=== PATIENT | female | born 1985 | race Caucasian/White ===

== ENCOUNTER 2020-06-03 11:21 | Emergency (ER) | payer BC, OTHER ==
[~2020-06-03] VITALS: Ht 175.3 cm; Wt 67.7 kg
[2020-06-03] MEDS ORDERED: FURO20TA2 PO (11:56)
[2020-06-03] MEDS ORDERED: OCUV1CAP4 PO (11:56)
[2020-06-03] MEDS ORDERED: LEVO50TA5 PO (11:56)
[2020-06-03] MEDS ORDERED: EQL50TAB2 PO (11:56)
[2020-06-03] MEDS ORDERED: GABA-845 PO (11:56)
[2020-06-03] MEDS ORDERED: XANA0.5T PO (11:56)
[2020-06-03] MEDS ORDERED: MELO15TA28 PO (11:56)
[2020-06-03] MEDS ORDERED: VITAD1000T PO (11:56)
[2020-06-03] MEDS ORDERED: AMBI5TAB PO (11:56)
[2020-06-03] MEDS ORDERED: PREDOPD OP (11:56)
[2020-06-03] MEDS ORDERED: MIRA1POW3 PO (11:56)
[2020-06-03] MEDS ORDERED: HYDR1TAB33 PO (11:56)
[2020-06-03] MEDS ORDERED: NS 1,000 ML IV ONE (13:15)
[2020-06-03] MEDS ORDERED: TETRACAINE 0.5% OPHTH SOLN 4ML OD ONE (13:15)
[2020-06-03] MEDS ORDERED: FLUORESCEIN OPHTH 1 MG STRIP OD ONE (13:15)
[2020-06-03 13:38] LABS: BASO # 0.1 10^3/uL (0.0-0.2); BASO % 0.9 % (0.0-1.0); EOS # 0.1 10^3/uL (0.0-0.5); EOS % 1.7 % (0.0-3.0); HEMATOCRIT 42.6 % (36.0-47.0); HEMOGLOBIN 14.7 g/dl (12.0-15.5); LYMPH # 1.3 10^3/uL (1.5-5.0); LYMPH % 19.4 % (24.0-44.0); MEAN CORPUSCULAR HGB CONC 34.5 g/dl (32.0-36.5); MEAN CORPUSCULAR VOLUME 95.7 fl (80.0-96.0); MONO # 0.4 10^3/uL (0.0-0.8); MONO % 6.1 % (0.0-5.0); NEUTROPHILS # 4.7 10^3/uL (1.5-8.5); NEUTROPHILS % 71.7 % (36.0-66.0); PLATELET COUNT, AUTOMATED 186 10^3/uL (150-450); RED BLOOD COUNT 4.45 10^6/uL (4.00-5.40); WHITE BLOOD COUNT 6.6 10^3/uL (4.0-10.0)
[2020-06-03 13:49] LABS: INR 1.1; PROTHROMBIN TIME 13.9 SECONDS (11.8-14.0)
[2020-06-03 13:50] LABS: PARTIAL THROMBOPLASTIN TIME 28.7 SECONDS (25.0-38.4)
[2020-06-03 14:08] LABS: ALT/SGPT 11 U/L (12-78); BILIRUBIN,DIRECT 0.2 MG/DL (0.0-0.2); BLOOD UREA NITROGEN 13 MG/DL (7-18); CALCIUM LEVEL 8.9 MG/DL (8.5-10.1); CARBON DIOXIDE LEVEL 29 MEQ/L (21-32); CHLORIDE LEVEL 108 MEQ/L (98-107); CREATININE FOR GFR 0.78 MG/DL (0.55-1.30); FREE T4 1.15 NG/DL (0.76-1.46); GLOMERULAR FILTRATION RATE > 60.0 (>60); GLUCOSE, FASTING 94 MG/DL (70-100); LIPASE 101 U/L (73-393); POTASSIUM SERUM 4.1 MEQ/L (3.5-5.1); SODIUM LEVEL 141 MEQ/L (136-145); TOTAL PROTEIN 7.1 GM/DL (6.4-8.2)
[2020-06-03 15:29] LABS: C REACTIVE PROTEIN QUANTITATIV < 0.30 MG/DL (0.00-0.30)
[2020-06-03 15:35] LABS: ERYTHROCYTE SEDIMENTATION RATE 2 mm/hr (0-20)
[2020-06-03] MEDS ORDERED: ISOVUE-370 76% 100ML VIAL As Ordered ONE (16:18)
[2020-06-03 16:33] VITALS: BP 125/62
--- NOTE | 2020-06-03 17:03 | REPVR ---
PROCEDURE INFORMATION: Exam: CT Angiography Neck With Contrast Exam date and time: 06/03/2020 4:15 PM Age: 34 years old Clinical indication: Visual disturbance; Additional info: Intermittent vision loss TECHNIQUE: Imaging protocol: Computed tomography angiography of the neck with intravenous contrast. 3D rendering: MIP and/or 3D reconstructed images were created by the technologist. Radiation optimization: All CT scans at this facility use at least one of these dose optimization techniques: automated exposure control; mA and/or kV adjustment per patient size (includes targeted exams where dose is matched to clinical indication); or iterative reconstruction. Contrast material: ISOVUE 370; Contrast volume: 100 ml; Contrast route: INTRAVENOUS (IV); COMPARISON: No relevant prior studies available. FINDINGS: Right common carotid artery: No stenosis. No dissection or occlusion. Right internal carotid artery: No stenosis of the extracranial segment. No dissection or occlusion. Right external carotid artery: No occlusion or stenosis of the origin. Right vertebral artery: No stenosis. No dissection or occlusion. Left common carotid artery: No stenosis. No dissection or occlusion. Left internal carotid artery: No stenosis of the extracranial segment. No dissection or occlusion. Left external carotid artery: No occlusion or stenosis of the origin. Left vertebral artery: No stenosis. No dissection or occlusion. Bones/joints: No acute fracture. Soft tissues: Normal. No significant soft tissue swelling. IMPRESSION: No acute abnormality. REFERENCES: NASCET CRITERIA. The degree of internal carotid artery stenosis is based on NASCET criteria. Normal is no stenosis. Mild is less than 50% stenosis. Moderate is 50-69% stenosis. Severe is 70% to 99% stenosis. Total occlusion is no detectable patent lumen. Electronically signed by: Mitchel Park On 06/03/2020 17:03:32 PM
--- NOTE | 2020-06-03 17:08 | REPVR ---
PROCEDURE INFORMATION: Exam: CT Angiography Head With Contrast Exam date and time: 06/03/2020 4:15 PM Age: 34 years old Clinical indication: Visual disturbance; Additional info: Intermittent vision loss TECHNIQUE: Imaging protocol: Computed tomography angiography of the head with intravenous contrast. 3D rendering: MIP and/or 3D reconstructed images were created by the technologist. Radiation optimization: All CT scans at this facility use at least one of these dose optimization techniques: automated exposure control; mA and/or kV adjustment per patient size (includes targeted exams where dose is matched to clinical indication); or iterative reconstruction. Contrast material: ISOVUE 370; Contrast volume: 100 ml; Contrast route: INTRAVENOUS (IV); COMPARISON: CT Head without contrast 06/03/2020 1:41 PM FINDINGS: Anterior cerebral arteries: No occlusion or significant stenosis. No aneurysm. Right internal carotid artery: Intracranial segment is patent with no significant stenosis or occlusion. No aneurysm. Right middle cerebral artery: No occlusion or significant stenosis. No aneurysm. Right posterior cerebral artery: No occlusion or significant stenosis. No aneurysm. Right vertebral artery: No occlusion or significant stenosis. No aneurysm. Left internal carotid artery: Intracranial segment is patent with no significant stenosis or occlusion. No aneurysm. Left middle cerebral artery: No occlusion or significant stenosis. No aneurysm. Left posterior cerebral artery: No occlusion or significant stenosis. No aneurysm. Left vertebral artery: No occlusion or significant stenosis. No aneurysm. Basilar artery: No occlusion or significant stenosis. No aneurysm. IMPRESSION: No acute abnormality. Electronically signed by: Mitchel Park On 06/03/2020 17:07:35 PM
--- NOTE | 2020-06-04 07:31 | REP ---
CT BRAIN WITHOUT CONTRAST: REASON: Vision changes. No priors. TECHNIQUE: 4.5 mm contiguous transaxial sections were obtained from the skull base to the cerebral convexities with thin cuts through the posterior fossa without the administration of intravenous contrast. FINDINGS: The ventricles and sulci are consistent with the patient's age. There are no extra-axial fluid collections. There is no mass effect. The deep cerebral white matter is consistent with the patient's age. The orbital and petrous structures, cerebellopontine angles, and posterior fossa are unremarkable. The sella turcica, cavernous, and paracavernous structures are essentially unremarkable. The visualized portions of the paranasal sinuses and mastoid air cells are clear. Images of the skull base show no gross abnormality. IMPRESSION: Essentially unremarkable CT examination of the brain. Electronically Signed by Toño Florian DO 06/04/2020 08:00 A
--- NOTE | 2020-06-04 08:33 | ECGEPIP ---
[facility] - ED Test Date: 2020-06-03 Pat Name: BRENDA STEWARD Department: Room: - Gender: Female Care Rep: HUGO : 1985 Requested By: REYES Zhao PA-C Order Number: [id number] Reading MD: Ovidio Shen Measurements Intervals [place] Rate: 54 P: 22 [place]: 155 QRS: 76 QRSD: 81 T: 52 QT: 426 QTc: 404 Interpretive Statements SINUS BRADYCARDIA NO PRIORS FOR COMPARISON Electronically Signed on 06-04-2020 8:33:35 EDT by Ovidio Shen
== END 2020-06-03 17:31 | disposition home or self-care (01) ==
LOC: M ED 11:21
DX: H53.121 Transient visual loss, right eye (principal); R00.1 Bradycardia, unspecified; Z86.19 Personal history of other infectious and parasitic diseases; H35.30 Unspecified macular degeneration; K58.9 Irritable bowel syndrome, unspecified; K55.019 Acute (reversible) ischemia of small intestine, extent unspecified; E03.9 Hypothyroidism, unspecified; F41.9 Anxiety disorder, unspecified; F32.9 Major depressive disorder, single episode, unspecified; G43.909 Migraine, unspecified, not intractable, without status migrainosus; I73.00 Raynaud's syndrome without gangrene; Z79.899 Other long term (current) drug therapy; Z88.0 Allergy status to penicillin; Z88.1 Allergy status to other antibiotic agents; Z88.5 Allergy status to narcotic agent; Z88.8 Allergy status to other drugs, medicaments and biological substances
CPT/HCPCS: 36415; 70450; 70496; 70498; 80047; 80048; 80076; 81001; 83690; 84439; 84443; 84702; 85025; 85610; 85652; 85730; 86140; 93005; 96360; 96361; 99284; Q9967